=== PATIENT | female | born 1975 | race Caucasian/White ===

== ENCOUNTER 2020-11-30 12:39 | Emergency (ER) | payer OTHER ==
[~2020-11-30] VITALS: Ht 142.2 cm; Wt 54.4 kg
[~2020-11-30 12:39] MED LIST: ACETAMINOPHEN-1 EAC1 PO; CELEXA40 MG; DESYREL50 MG; EXCEDRIN CAPLE1 EACH; PREDNISONE 20 M20 M1 PO; VENTOLIN HFA INH8 GM IH; ZPAK PO
[2020-11-30 12:40] VITALS: BP 122/76
== END 2020-11-30 13:03 | disposition home or self-care (01) ==
LOC: M.ERS 12:39
DX: R51.9 Headache, unspecified (principal); Z91.040 Latex allergy status